=== PATIENT | female | born 1960 | race Two or more races ===

== ENCOUNTER 2018-07-04 08:26 | Emergency (ER) | payer SELFPAY ==
--- OUTSIDE RECORDS SUMMARY | 2018-07-04 08:28 | XMS REPORT | Continuity of Care Document ---
:1960 Author Organization Interface Problems Problem Status Onset Classification Date Comments Source Date Reported Encounter for 12/12/2017 OPID The screening 8 [place] mammogram for malignant neoplasm of breast Discharge 02/05/2017 The Diagnosis: 7 [place] Acute abdominal pain Discharge 02/05/2017 The Diagnosis: 7 [place] Acute headache ABDOMINAL Active The PAIN 7 [place] Medications Medication Details Route Status Patient Ordering Order Source Instructions Provider Date Promethazine DM 5 mL, PO, Q6H, Active Medical oral syrup PRN for cough, 2017 Group X 6 day, # 120 mL, 0 Refill(s), Pharmacy: [facility] {6 See Active Medical (Azithromycin Instructions, 2017 Group 250 MG Oral Take 2 tablets Tablet by mouth the [Zithromax]) } first day then Pack [Z-PAKS] 1 tablet by mouth days 2-5., X 5 day, # 6 tab, 0 Refill(s), Pharmacy: [facility] tramadol 50 mg=1 tab, Active The hydrochloride PO, BID, X 5 2016 [place] 50 MG Oral day, # 10 tab, Tablet 0 Refill(s) Dicyclomine 10 mg=1 cap, Active The Hydrochloride PO, QID-Before 2016 [place] 10 MG Oral Meals, # 28 Capsule cap, 0 [Bentyl] Refill(s) Benadryl 25 mg, 0.5 mL, Inactive The Route: IVP, 2016 [place] Drug form: INJ, ONCE, Dosing Weight 57.727, kg, Priority: STAT, Start date: 02/02/17 17:05:00 CDT, Stop date: 02/02/17 17:05:00 CDTNotes: (Same as: Benadryl) Morphine 4 mg, 1 mL, Inactive The Route: IVP, 2016 [place] Drug form: INJ, ONCE, Dosing Weight 57.727, kg, Priority: STAT, Start date: 02/02/17 16:57:00 CDT, Stop date: 02/02/17 16:57:00 CDTNotes: (Same as:MORPhine Sulfate) Zofran 4 mg, 2 mL, Inactive The Route: IVP, 2016 [place] Drug form: INJ, ONCE, Dosing Weight 57.727, kg, Priority: STAT, Start date: 02/02/17 16:57:00 CDT, Stop date: 02/02/17 16:57:00 CDTNotes: (Same as: Zofran) MEDICATION WASTE Product Size: 4 mg Product Wasted: ___ mg Sodium Chloride 1,000 mL, Inactive The 0.154 MEQ/ML 1,000 ml/hr, 2016 [place] Injectable Infuse Over: 1 Solution hr, Route: IV, 1,000, Drug form: INJ, ONCE, Priority: STAT, Dosing Weight 57.727 kg, Start date: 02/02/17 16:56:00 CDT, Duration: 1 doses or times, Stop date: 02/02/17 16:56:00 CDT Saline Flush 10 mL, Route: Inactive The 0.9% IVP, Drug 2016 [place] Form: INJ, Dosing Weight 57.727, kg, PRN, PRN Line Flush, Start date: 02/02/17 14:58:00 CDT, Duration: 30 day, Stop date: 03/04/17 14:57:00 CDTNotes: preservative free. Allergies, Adverse Reactions, Alerts Substance Category Reaction Severity Reaction Status Date Comments Source type Reported Immunizations Immunization Date Given Site Status Last Updated Comments Source Results Order Name Results Value Reference Date Interpretation Comments Source Range Breast Breast Mammo 09/05 - OPID Mammo Scrn Scrn JOSÉ MIGUEL w /2017 - The JOSÉ MIGUEL w dev dev incl [place] incl CAD CAD JENNY ALVARADO Read by: Radha Barbosa MD Dictated Date/time: 09/13/17 08:02 BILATERAL DIGITAL SCREENING MAMMOGRAM 3D/2D WITH CAD: 09/05/2017 Electronically Signed by: Radha Barbosa MD 09/13/17 08 :02 FINAL REPORT CLINICAL: /Screening Gabriel Cota AlfredoSophie (: 64). Current study was evaluated with a Computer Aided Detection (CAD) system. COMPARISON:Comparison is made to exam dated: 2016 mammogram - Nelda Rider. TECHNIQUE: Digital Breast Tomosynthesis was performed and utilized for Interpretation. Current study was also evaluated with a Computer Aided Detection (CAD) system. FINDINGS: There are scattered fibroglandular densities in both breasts. No significant masses, calcifications, or other findings are seen in either breast. There has been no significant interval change. IMPRESSION: NEGATIVE RECOMMENDATION:There is no mammographic evidence of malignancy. A 1 year screening mammogram is recommended.(09/06/2018) This exam was interpreted at [id number] at [facility]. Professional services are provided by the [facility] M[facility] Division of Diagnostic Imaging. Radha Barbosa M.D. to/penrad:09/13/2017 08:02:07 Licensed Master Social Worker(s): RT Justen(R)(M), [facility] - OP Imaging letter sent: BI-RADS 1/2 Mammogram BI-RADS: 1 Negative URINE AND UA <=1.0 0.1 - 1.0 02/02 The STOOL Urobilinogen mg/dL /2016 [place] URINE AND UA Turbidity Clear Clear 02/02 The STOOL [place] (02/02/17 3:45 PM) URINE AND UA Spec Grav 1.018 <=1.030 02/02 The STOOL [place] URINE AND UA Color Yellow Yellow 02/02 The [place] *NA* (02/02/17 3:45 PM) URINE AND UA RBC 7 /HPF 0 - 2 02/02 The STOOL [place] URINE AND UA Mucus Moderate None Seen 02/02 The STOOL /LPF /LPF /2016 [place] URINE AND UA Bili Negative Negative 02/02 The [facility] [place] *NA* (02/02/17 3:45 PM) URINE AND UA Nitrite Negative Negative 02/02 The STOOL /2016 [place] (02/02/17 3:45 PM) URINE AND UA Blood Negative Negative 02/02 The STOOL /2016 [place] (02/02/17 3:45 PM) URINE AND UA Leuk Est Negative Negative 02/02 The STOOL [place] (02/02/17 3:45 PM) URINE AND UA Sq Epi Few /LPF Few /LPF 02/02 The [place] URINE AND UA WBC 2 /HPF 0 - 5 02/02 The STOOL [place] URINE AND UA Protein 10 mg/dL Negative 02/02 The STOOL mg/dL [place] URINE AND UA pH 6.0 5.0 - 8.0 02/02 The [place] URINE AND UA Ketones 40 mg/dL Negative 02/02 The STOOL mg/dL [place] URINE AND UA Glucose Negative Negative 02/02 The STOOL mg/dL mg/dL [place] CARDIAC Troponin-I null 0.00 - 02/02 The ENZYMES 0.40 [place] CARDIAC Troponin-I null 0.00 - 02/02 The ENZYMES 0.40 [place] CHEM PANEL Lipase Lvl 214 unit/L 73 - 393 02/02 [place] CHEM PANEL eGFR 105 02/02 Result Comment: The eGFR is calculated using the CKD-EPI formula. In most young, healthy individuals the eGFR will be >90 mL/ min/1.73m2. The eGFR declines with age. An eGFR of 60-89 may be normal in The mL/min/1.7 /2017 some populations, particularly the elderly, for whom the CKD-EPI formula has not been extensively validated. Use of the eGFR is not recommended in the following populations: [place] 3m2 Individuals with unstable creatinine concentrations, including patients and those with serious co-morbid conditions. Patients with extremes in muscle mass or diet. The data above are obtained from the National Kidney Disease Education Program (NKDEP) which additionally recommends that when the eGFR is used in patients with extremes of body mass index for purposes of drug dosing, the eGFR should be multiplied by the estimated BMI. CHEM PANEL Glucose Lvl 99 mg/dL 70 - 99 02/02 [place] CHEM PANEL ALT 25 unit/L 0 - 65 02/02 [place] CHEM PANEL Sodium Lvl 136 meq/L 135 - 145 02/02 [place] CHEM PANEL Chloride Lvl 103 meq/L 95 - 109 02/02 The [place] CHEM PANEL Potassium 3.4 meq/L 3.5 - 5.1 02/02 MH The Lvl [place] CHEM PANEL Creatinine 0.57 mg/dL 0.50 - 07 MH The Lvl 1.40 [place] CHEM PANEL BUN 13 mg/dL 7 - 22 02/02 The [place] CHEM PANEL Albumin Lvl 4.1 g/dL 3.5 - 5.0 02/02 The [place] CHEM PANEL Total 7.7 g/dL 6.4 - 8.4 02/02 The Protein [place] CHEM PANEL Calcium Lvl 8.9 mg/dL 8.5 - 10.5 02/02 The [place] CHEM PANEL CO2 25 meq/L 24 - 32 02/02 MH The [place] CHEM PANEL AST 21 unit/L 0 - 37 02/02 The [place] CHEM PANEL Alk Phos 82 unit/L 39 - 136 02/02 The [place] CHEM PANEL Bili Total 0.8 mg/dL 0.2 - 1.3 02/02 The [place] CHEM PANEL Globulin 3.6 g/dL 2.7 - 4.2 02/02 The [place] CHEM PANEL A/G Ratio 1.1 0.7 - 1.6 02/02 The [place] CHEM PANEL B/C Ratio 23 6 - 25 02/02 The [place] CHEM PANEL AGAP 11.4 meq/L 10.0 - 02/02 The 20. [place] HEMATOLOGY Segs-Bands # 6.7 K/CMM 1.5 - 8.1 02/02 The [place] HEMATOLOGY Basophils 0.4 % 0.0 - 1.0 02/02 MH The [place] HEMATOLOGY Eosinophils 0.1 K/CMM 0.0 - 0.5 02/02 MH The # [place] HEMATOLOGY Lymphocytes 1.8 K/CMM 1.0 - 5.5 02/02 MH The # [place] HEMATOLOGY Monocytes # 0.4 K/CMM 0.0 - 0.8 02/02 The [place] HEMATOLOGY Lymphocytes 20.2 % 20.0 - 02/02 MH The 40.0 [place] HEMATOLOGY Eosinophils 1.2 % 0.0 - 4.0 02/02 The [place] HEMATOLOGY Monocytes 4.9 % 2.0 - 12.0 02/02 The [place] HEMATOLOGY Segs 73.3 % 45.0 - 02/02 The 75.0 [place] HEMATOLOGY INR 1.08 0.85 - 02/02 The 1.17 [place] HEMATOLOGY PT 14.2 s 12.0 - 02/02 The 14.7 [place] HEMATOLOGY PTT 35.8 s 22.9 - 02/02 The 35.8 [place] HEMATOLOGY MCV 86.1 fL 80.0 - 02/02 The 98.0 [place] HEMATOLOGY Hct 41.6 % 36.0 - 02/02 The 48.0 [place] HEMATOLOGY MCHC 33.9 g/dL 32.0 - 02/02 The 36.0 [place] HEMATOLOGY RDW 13.5 % 11.5 - 02/02 The 14. [place] HEMATOLOGY Platelet 222 K/CMM 133 - 450 02/02 The [place] HEMATOLOGY MCH 29.2 pg 27.0 - 02/02 The 31.0 [place] HEMATOLOGY MPV 8.2 fL 7.4 - 10.4 02/02 The [place] HEMATOLOGY RBC 4.83 M/CMM 4.20 - 02/02 The 5.40 [place] HEMATOLOGY WBC 9.1 K/CMM 3.7 - 10.4 02/02 [place] HEMATOLOGY Hgb 14.1 g/dL 12.0 - 02/02 The 16.0 [place] Vital Signs Vital Sign Value Date Comments Source Height 165.1 cm 06/22/2017 [facility] Heart Rate 98 06/22/2017 [facility] Temperature Oral (F) 99.9 F 06/22/2017 [facility] Systolic (mm Hg) 118 06/22/2017 [facility] Diastolic (mm Hg) 73 06/22/2017 [facility] BMI Calculated 20.68 06/22/2017 [facility] Weight 56.364 06/22/2017 [facility] Respitory Rate 19 02/03/2017 [facility] Systolic (mm Hg) 126 02/03/2017 [facility] Diastolic (mm Hg) 70 02/03/2017 [place] Systolic (mm Hg) 130 02/03/2017 [place] Diastolic (mm Hg) 75 02/03/2017 [place] Respitory Rate 13 02/03/2017 [place] Systolic (mm Hg) 155 02/02/2017 [place] Diastolic (mm Hg) 89 02/02/2017 [place] Heart Rate 73 02/02/2017 [place] Respitory Rate 19 02/02/2017 [place] Heart Rate 63 02/02/2017 [place] Heart Rate 70 02/02/2017 [place] Encounters Location Location Encounter Encounter Reason Attending ADM DC Status Source Details Type Number For Provider Date Date Visit Outpatient [id number] [facility] 02/02 [facility] Emergency [id number] Terry 02/02 02/03 [facility] /2016 [facility] Outpatient [id number] [facility] 06/22 [facility] Outpatient [id number] [facility] 06/22 06/23 [facility]2016 [facility] Outpatient [id number] Saqib 09/05 09/06 [facility] Outpatient Serjio /2017 [facility] Procedures Procedure Code Date Perfomer Comments Source
--- OUTSIDE RECORDS SUMMARY | 2018-07-04 08:29 | XMS REPORT | Summary of Care ---
:1960 Author Organization [facility] Outpatient Imaging [place] Address [address] [place] [address]- Encounter HQ Encntr_alias(FIN) [id number] Date(s): 09/05/17 - 09/05/17 [facility] Outpatient Imaging [place] [id number] - Encounter Diagnosis Encounter for screening mammogram for malignant neoplasm of breast (Final) - Discharge Disposition: Home or Self Care Attending Physician: Saqib Bassett MD Vital Signs No data available for this section Problem List No data available for this section Allergies, Adverse Reactions, Alerts Substance Reaction Severity Status NKDA Active Medications No data available for this section Results No data available for this section Immunizations No data available for this section Procedures No data available for this section Social History Social History Type Response Smoking Status Never smoker; Exposure to Tobacco Smoke None; Cigarette Smoking Last 365 Days No; Reg Smoking Cessation Counseling Yes entered on: 06/22/17 Assessment and Plan No data available for this section
--- OUTSIDE RECORDS SUMMARY | 2018-07-04 08:29 | XMS REPORT | Summary of Care ---
:1960 Author Organization [facility] Address [address], [place] [address]- Encounter HQ Encntr_alidarlin(FIN) [id number] Date(s): 02/02/17 - 02/02/[address] [address]- Discharge Diagnosis: Acute abdominal pain Discharge Diagnosis: Acute headache Discharge Disposition: Home or Self Care Attending Physician: Terry Harris MD Vital Signs Most recent to oldest 1 2 3 [Reference Range]: Blood Pressure [90-140/60-90 126/70 mmHg 130/75 mmHg 155/89 mmHg mmHg] (02/02/17 7:56 PM) (02/02/17 7:00 PM) *HI* (02/02/17 6:15 PM) Respiratory Rate [14-20 BRMIN] 19 BRMIN 13 BRMIN 19 BRMIN (02/02/17 7:56 PM) *LOW* (02/02/17 6:15 PM) (02/02/17 7:00 PM) Peripheral Pulse Rate [60-100 73 bpm 63 bpm 70 bpm bpm] (02/02/17 6:15 PM) (02/02/17 2:59 PM) (02/02/17 2:45 PM) Problem List No data available for this section Allergies, Adverse Reactions, Alerts Substance Reaction Severity Status NKDA Active Medications Benadryl 25 mg, 0.5 mL, Route: IVP, Drug form: INJ, ONCE, Dosing Weight 57.727, kg, Priority: STAT, Start date: 02/02/17 17:05:00 CDT, Stop date: 02/02/17 17:05:00 CDT Notes: (Same as: Benadryl) Start Date: 02/02/17 Stop Date: 02/02/17 Status: CompletedBentyl 10 mg oral capsule 10 mg=1 cap, PO, QID-Before Meals, # 28 cap, 0 Refill(s) Start Date: 02/02/17 Stop Date: 02/09/17 Status: Orderedmorphine Sulfate 4 mg, 1 mL, Route: IVP, Drug form: INJ, ONCE, Dosing Weight 57.727, kg, Priority : STAT, Start date: 02/02/17 16:57:00 CDT, Stop date: 02/02/17 16:57:00 CDT Notes: (Same as:MORPhine Sulfate) Start Date: 02/02/17 Stop Date: 02/02/17 Status: CompletedNS (Bolus) IV 1,000 mL, 1,000 ml/hr, Infuse Over: 1 hr, Route: IV, 1,000, Drug form: INJ, ONCE , Priority: STAT, Dosing Weight 57.727 kg, Start date: 02/02/17 16:56:00 CDT, Duration: 1 doses or times, Stop date: 02/02/17 16:56:00 CDT Start Date: 02/02/17 Stop Date: 02/02/17 Status: CompletedSaline Flush 0.9% 10 mL, Route: IVP, Drug Form: INJ, Dosing Weight 57.727, kg, PRN, PRN Line Flush , Start date: 02/02/17 14:58:00 CDT, Duration: 30 day, Stop date: 03/04/17 14:57 :00 CDT Notes: preservative free. Start Date: 02/02/17 Stop Date: 02/02/17 Status: Discontinuedtramadol 50 mg oral tablet 50 mg=1 tab, PO, BID, X 5 day, # 10 tab, 0 Refill(s) Start Date: 02/02/17 Stop Date: 02/07/17 Status: OrderedZofran 4 mg, 2 mL, Route: IVP, Drug form: INJ, ONCE, Dosing Weight 57.727, kg, Priority : STAT, Start date: 02/02/17 16:57:00 CDT, Stop date: 02/02/17 16:57:00 CDT Notes: (Same as: Zofran) MEDICATION WASTE Product Size: 4 mgProduct Wasted: ___ mg Start Date: 02/02/17 Stop Date: 02/02/17 Status: Completed Results ELECTROLYTES Most recent to oldest [Reference Range]: 1 2 Sodium Lvl [135-145 mEq/L] 136 mEq/L (02/02/17 3:06 PM) Potassium Lvl [3.5-5.1 mEq/L] 3.4 mEq/L *LOW* (02/02/17 3:06 PM) Chloride Lvl [95-109 mEq/L] 103 mEq/L (02/02/17 3:06 PM) CO2 [24-32 mEq/L] 25 mEq/L (02/02/17 3:06 PM) AGAP [10.0-20.0 mEq/L] 11.4 mEq/L (02/02/17 3:06 PM) CHEM PANEL Most recent to oldest [Reference Range]: 1 2 Creatinine Lvl [0.50-1.40 mg/dL] 0.57 mg/dL (02/02/17 3:06 PM) eGFR 105 mL/min/1.73m2 1 *NA* (02/02/17 3:06 PM) BUN [7-22 mg/dL] 13 mg/dL (02/02/17 3:06 PM) B/C Ratio [6-25] 23 (02/02/17 3:06 PM) Glucose Lvl [70-99 mg/dL] 99 mg/dL (02/02/17 3:06 PM) Total Protein [6.4-8.4 g/dL] 7.7 g/dL (02/02/17 3:06 PM) Albumin Lvl [3.5-5.0 g/dL] 4.1 g/dL (02/02/17 3:06 PM) Globulin [2.7-4.2 g/dL] 3.6 g/dL (02/02/17 3:06 PM) A/G Ratio [0.7-1.6] 1.1 (02/02/17 3:06 PM) Calcium Lvl [8.5-10.5 mg/dL] 8.9 mg/dL (02/02/17 3:06 PM) ALT [0-65 unit/L] 25 unit/L (02/02/17 3:06 PM) AST [0-37 unit/L] 21 unit/L (02/02/17 3:06 PM) Alk Phos [39-136 unit/L] 82 unit/L (02/02/17 3:06 PM) Bili Total [0.2-1.3 mg/dL] 0.8 mg/dL (02/02/17 3:06 PM) Lipase Lvl [73-393 unit/L] 214 unit/L (02/02/17 3:06 PM) 1Result Comment: The eGFR is calculated using the CKD-EPI formula. In most young , healthy individualsthe eGFR will be >90 mL/min/1.73m2. The eGFR declines with age. An eGFR of 60-89 may be normal in some populations, particularly the elderly, for whom the CKD-EPI formula has not been extensively validated. Use of the eGFR is not recommended in the following populations: Individuals with unstable creatinine concentrations, including patients and those with serious co-morbid conditions. Patients with extremes in muscle mass or diet. The data above are obtained from the National Kidney Disease Education Program ( NKDEP) which additionally recommends that when the eGFR is used in patients with extremes of body mass index for purposesof drug dosing, the eGFR should be multiplied by the estimated BMI.CARDIAC ENZYMES Most recent to oldest [Reference Range]: 1 2 Troponin-I [0.00-0.40 ng/mL] <0.02 ng/mL <0.02 ng/mL (02/02/17 3:06 PM) (02/02/17 3:06 PM) URINE AND STOOL Most recent to oldest [Reference Range]: 1 2 UA Turbidity [Clear] Clear (02/02/17 3:45 PM) UA Color [Yellow] Yellow *NA* (02/02/17 3:45 PM) UA pH [5.0-8.0] 6.0 (02/02/17 3:45 PM) UA Spec Grav [<=1.030] 1.018 (02/02/17 3:45 PM) UA Glucose [Negative mg/dL] Negative mg/dL *NA* (02/02/17 3:45 PM) UA Blood [Negative] Negative (02/02/17 3:45 PM) UA Ketones [Negative mg/dL] 40 mg/dL *ABN* (02/02/17 3:45 PM) UA Protein [Negative mg/dL] 10 mg/dL *ABN* (02/02/17 3:45 PM) UA Urobilinogen [0.1-1.0 mg/dL] <=1.0 mg/dL *NA* (02/02/17 3:45 PM) UA Bili [Negative] Negative *NA* (02/02/17 3:45 PM) UA Leuk Est [Negative] Negative (02/02/17 3:45 PM) UA Nitrite [Negative] Negative (02/02/17 3:45 PM) UA WBC [0-5 /HPF] 2 /HPF (02/02/17 3:45 PM) UA RBC [0-2 /HPF] 7 /HPF *HI* (02/02/17 3:45 PM) UA Sq Epi [Few /LPF] Few /LPF *NA* (02/02/17 3:45 PM) UA Mucus [None Seen /LPF] Moderate /LPF *ABN* (02/02/17 3:45 PM) HEMATOLOGY Most recent to oldest [Reference Range]: 1 2 WBC [3.7-10.4 K/CMM] 9.1 K/CMM (02/02/17 3:06 PM) RBC [4.20-5.40 M/CMM] 4.83 M/CMM (02/02/17 3:06 PM) Hgb [12.0-16.0 g/dL] 14.1 g/dL (02/02/17 3:06 PM) Hct [36.0-48.0 %] 41.6 % (02/02/17 3:06 PM) MCV [80.0-98.0 fL] 86.1 fL (02/02/17 3:06 PM) MCH [27.0-31.0 pg] 29.2 pg (02/02/17 3:06 PM) MCHC [32.0-36.0 g/dL] 33.9 g/dL (02/02/17 3:06 PM) RDW [11.5-14.5 %] 13.5 % (02/02/17 3:06 PM) Platelet [133-450 K/CMM] 222 K/CMM (02/02/17 3:06 PM) MPV [7.4-10.4 fL] 8.2 fL (02/02/17 3:06 PM) Segs [45.0-75.0 %] 73.3 % (02/02/17 3:06 PM) Lymphocytes [20.0-40.0 %] 20.2 % (02/02/17 3:06 PM) Monocytes [2.0-12.0 %] 4.9 % (02/02/17 3:06 PM) Eosinophils [0.0-4.0 %] 1.2 % (02/02/17 3:06 PM) Basophils [0.0-1.0 %] 0.4 % (02/02/17 3:06 PM) Segs-Bands # [1.5-8.1 K/CMM] 6.7 K/CMM (02/02/17 3:06 PM) Lymphocytes # [1.0-5.5 K/CMM] 1.8 K/CMM (02/02/17 3:06 PM) Monocytes # [0.0-0.8 K/CMM] 0.4 K/CMM (02/02/17 3:06 PM) Eosinophils # [0.0-0.5 K/CMM] 0.1 K/CMM (02/02/17 3:06 PM) PT [12.0-14.7 seconds] 14.2 seconds (02/02/17 3:06 PM) INR [0.85-1.17] 1.08 (02/02/17 3:06 PM) PTT [22.9-35.8 seconds] 35.8 seconds (02/02/17 3:06 PM) Immunizations No data available for this section Procedures No data available for this section Social History Social History Type Response Smoking Status Never smoker; Exposure to Tobacco Smoke None; Cigarette Smoking Last 365 Days No; Reg Smoking Cessation Counseling Yes Assessment and Plan No data available for this section
--- OUTSIDE RECORDS SUMMARY | 2018-07-04 08:29 | XMS REPORT | Summary of Care ---
:1960 Author Organization [facility] [place] [facility] Address [address] [place] [address]- Encounter HQ Jose Jr_rigoberto(FIN) [id number] Date(s): 06/22/17 - 06/22/17 [facility] [place] [facility] [address] [place] [phone] Discharge Disposition: Home or Self Care Attending Physician: Dominic Gil NP Vital Signs Most recent to oldest [Reference Range]: 1 Height 165.1 cm (06/22/17 10:12 AM) Temperature Oral [96.4-99.1 DegF] 99.9 DegF *HI* (06/22/17 10:12 AM) Blood Pressure [90-140/60-90 mmHg] 118/73 mmHg (06/22/17 10:12 AM) Peripheral Pulse Rate [60-100 bpm] 98 bpm (06/22/17 10:12 AM) Weight 56.364 kg (06/22/17 10:12 AM) Body Mass Index 20.68 m2 (06/22/17 10:12 AM) Problem List No data available for this section Allergies, Adverse Reactions, Alerts Substance Reaction Severity Status NKDA Active Medications Promethazine DM oral syrup 5 mL, PO, Q6H, PRN for cough, X 6 day, # 120 mL, 0 Refill(s), Pharmacy: [facility] [id number] Start Date: 06/22/17 Stop Date: 06/28/17 Status: OrderedZithromax Z-Shaqu[place] 250 mg oral tablet See Instructions, Take 2 tablets by mouth the first day then 1 tablet by mouth days 2-5., X 5 day, #6 tab, 0 Refill(s), Pharmacy: [facility] [id number] Start Date: 06/22/17 Stop Date: 06/27/17 Status: Ordered Results No data available for this section Immunizations No data available for this section Procedures No data available for this section Social History Social History Type Response Smoking Status Never smoker; Exposure to Tobacco Smoke None; Cigarette Smoking Last 365 Days No; Reg Smoking Cessation Counseling Yes Assessment and Plan No data available for this section
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
== END 2018-07-04 10:44 | disposition home or self-care (01) ==
LOC: ER 08:26
DX: S16.1XXA Strain of muscle, fascia and tendon at neck level, initial encounter (principal); S60.212A Contusion of left wrist, initial encounter; V49.40XA Driver injured in collision with unspecified motor vehicles in traffic accident, initial encounter
CPT/HCPCS: 70450; 72040; 99284

== ENCOUNTER 2019-12-10 17:35 | Emergency (ER) | payer SELFPAY ==
--- OUTSIDE RECORDS SUMMARY | 2019-12-10 17:37 | XMS REPORT | Continuity of Care Document ---
:1960 Author Organization [email or web address] Care Team Providers Name Role Phone [email or web address] Unavailable Un available Problems Problem Status Onset Classification Date Comments Sourc e Date Reported Encounter for 12/12/2017 OP ID The screening 8 [facility] mammogram for malignant neoplasm of breast Unspecified 02/05/2017 The abdominal pain 7 [facility] Headache 02/05/2017 The 7 [facility] ABDOMINAL PAIN Active [facility] e 7 [facility] Medications Medication Details Route Status Patient Ordering Order Source Instructions Provider Date Promethazine DM 5 mL, PO, Q6H, Active 06/22/ M [facility] oral syrup PRN for cough, 2017 Group X 6 day, # 120 mL, 0 Refill(s), Pharmacy: [facility] [id number] {6 See Active Medical (Azithromycin Instructions, 2017 Grou p 250 MG Oral Take 2 tablets Tablet by mouth the [Zithromax]) } first day then Pack [Z-PAKS] 1 tablet by mouth days 2-5., X 5 day, # 6 tab, 0 Refill(s), Pharmacy: [facility] [id number] tramadol 50 mg = 1 tab, Active The hydrochloride PO, BID, X 5 2017 [place] and[facility] 50 MG Oral day, # 10 tab, Tablet 0 Refill(s) Dicyclomine 10 mg = 1 cap, Active Th e Hydrochloride PO, QID-Before 2017 [place] 10 MG Oral Meals, # 28 Capsule cap, 0 [Bentyl] Refill(s) Benadryl Notes: (Same Inactive The as: Benadryl) 2016 [facility] Morphine Notes: (Same Inactive The as:MORPhine 2016 [facility] Sulfate) Zofran Notes: (Same Inactive The as: Zofran) 2016 [facility] MEDICATION WASTE Product Size: 4 mg Product Wasted: ___ mg Sodium Chloride 1,000 mL, Inactive Th e 0.154 MEQ/ML 1,000 ml/hr, 2016 [facility] Injectable Infuse Over: 1 Solution hr, Route: IV, 1,000, Drug form: INJ, ONCE, Priority: STAT, Dosing Weight 57.727 kg, Start date: 02/02/17 16:56:00 CDT, Duration: 1 doses or times, Stop date: 02/02/17 16:56:00 CDT Saline Flush Notes: Inactive The 0.9% preservative 2016 [facility] free. Allergies, Adverse Reactions, Alerts No Known Medication Allergies Immunizations No Data Provided for This Section Results Order Name Results Value Reference Date Interpretation Comments Doris rce Range URINE AND UA <=1.0 0.1 - 1.0 02/02 The STOOL Urobilinogen mg/dL /2016 [facility] URINE AND UA Turbidity Clear Clear 02/02 The STOOL (02/02/17 3:45 PM) /2016 [facility] nds URINE AND UA Spec Grav 1.018 <=1.030 02/02 The STOOL /2016 [place] URINE AND UA Color Yellow Yellow 02/02 The STOOL *NA* /2016 [place] (02/02/17 3:45 PM) URINE AND UA RBC 7 0 - 2 02/02 The STOOL /2016 [place] URINE AND UA Mucus Moderate None Seen 02/02 The STOOL /LPF /LPF /2016 [place] URINE AND UA Bili Negative Negative 02/02 The STOOL *NA* /2016 [place] (02/02/17 3:45 PM) URINE AND UA Nitrite Negative Negative 02/02 The STOOL (02/02/17 3:45 PM) /2016 [facility] nds URINE AND UA Blood Negative Negative 02/02 The STOOL (02/02/17 3:45 PM) /2016 [facility] URINE AND UA Leuk Est Negative Negative 02/02 The STOOL (02/02/17 3:45 PM) /2016 [facility] nds URINE AND UA Sq Epi Few /LPF Few /LPF 02/02 The STOOL /2016 [facility] URINE AND UA WBC 2 0 - 5 02/02 [facility] The STOOL /2016 [place] URINE AND UA Protein 10 mg/dL Negative 02/02 The STOOL mg/dL /2016 [place] URINE AND UA pH 6.0 5.0 - 8.0 02/02 The STOOL /2016 [facility] URINE AND UA Ketones 40 mg/dL Negative 02/02 The STOOL mg/dL /2016 [facility] URINE AND UA Glucose Negative Negative 02/02 [facility] The STOOL mg/dL mg/dL /2016 [facility] CARDIAC Troponin-I <0.02 0.00 - 02/02 The ENZYMES 0.40 [facility] CARDIAC Troponin-I <0.02 0.00 - 02/02 The ENZYMES 0.40 [facility] CHEM PANEL Lipase Lvl 214 73 - 393 02/02 The [facility] CHEM PANEL eGFR 105 02/02 [facility] Comment: [place] eGFR is calculated using the CKD-EPI formula. In most young, healthy individuals the eGFR will be >90 mL/min/1.73m2 . The eGFR declines with age. An eGFR of 60-89 may be normal in some populations, particularly the elderly, for whom the CKD-EPI formula has not been extensively validated. Use of the eGFR is not recommended in the following populations:< br/>
Lucinda viduals with unstable creatinine concentration s, including patients and those with serious co-morbid conditions.<b r/>
Patie nts with extremes in muscle mass or diet.

The data above are obtained from the National Kidney Disease Education Program (NKDEP) which additionally recommends that when the eGFR is used in patients with extremes of body mass index for purposes of drug dosing, the eGFR should be multiplied by the estimated BMI. CHEM PANEL Glucose Lvl 99 70 - 99 02/02 The [facility] CHEM PANEL ALT 25 0 - 65 02/02 The [facility] CHEM PANEL Sodium Lvl 136 135 - 145 02/02 The [facility] CHEM PANEL Chloride Lvl 103 95 - 109 02/02 The [facility] CHEM PANEL Potassium 3.4 3.5 - 5.1 02/02 The Lvl [facility] CHEM PANEL Creatinine 0.57 0.50 - 02/02 The Lvl 1.40 [facility] CHEM PANEL BUN 13 7 - 22 02/02 The [facility] CHEM PANEL Albumin Lvl 4.1 3.5 - 5.0 07 The [facility] CHEM PANEL Total 7.7 6.4 - 8.4 07 The Protein [facility] CHEM PANEL Calcium Lvl 8.9 8.5 - 10.5 02/02 The [facility] CHEM PANEL CO2 25 24 - 32 07 The [facility] CHEM PANEL AST 21 0 - 37 07 The [facility] CHEM PANEL Alk Phos 82 39 - 136 07 The [facility] CHEM PANEL Bili Total 0.8 0.2 - 1.3 07 The [place] CHEM PANEL Globulin 3.6 2.7 - 4.2 07 The [facility] CHEM PANEL A/G Ratio 1.1 0.7 - 1.6 02/02 The [facility] CHEM PANEL B/C Ratio 23 6 - 25 07 The [facility] CHEM PANEL AGAP 11.4 10.0 - 02/02 The 20.0 [facility] HEMATOLOGY Segs-Bands # 6.7 1.5 - 8.1 02/02 The [facility] HEMATOLOGY Basophils 0.4 0.0 - 1.0 07 The [facility] HEMATOLOGY Eosinophils 0.1 0.0 - 0.5 07 The # [facility] HEMATOLOGY Lymphocytes 1.8 1.0 - 5.5 02/02 The # [facility] HEMATOLOGY Monocytes # 0.4 0.0 - 0.8 02/02 The [facility] HEMATOLOGY Lymphocytes 20.2 20.0 - 02/02 The 40.0 [facility] HEMATOLOGY Eosinophils 1.2 0.0 - 4.0 07 The [facility] HEMATOLOGY Monocytes 4.9 2.0 - 12.0 02/02 The [place] HEMATOLOGY Segs 73.3 45.0 - 02/02 The 75.0 [facility] HEMATOLOGY INR 1.08 0.85 - 02/02 The 1.17 [facility] HEMATOLOGY PT 14.2 12.0 - 02/02 The 14.7 [facility] HEMATOLOGY PTT 35.8 22.9 - 02/02 The 35.8 [facility] HEMATOLOGY MCV 86.1 80.0 - 02/02 The 98.0 [facility] HEMATOLOGY Hct 41.6 36.0 - 02/02 The 48.0 [facility] HEMATOLOGY MCHC 33.9 32.0 - 02/02 The 36.0 [facility] HEMATOLOGY RDW 13.5 11.5 - 02/02 The 14.5 [facility] HEMATOLOGY Platelet 222 133 - 450 02/02 The [facility] HEMATOLOGY MCH 29.2 27.0 - 02/02 The 31.0 [facility] HEMATOLOGY MPV 8.2 7.4 - 10.4 02/02 The [facility] HEMATOLOGY RBC 4.83 4.20 - 02/02 The 5.40 [facility] HEMATOLOGY WBC 9.1 3.7 - 10.4 02/02 [facility] HEMATOLOGY Hgb 14.1 12.0 - 02/02 The 16.0 [facility] Pathology Reports No Data Provided for This Section Diagnostic Reports Report Value Date Source Breast Mammo Scrn 09/05/2017 [place] [place] JOS[place] MIGUEL w dev incl CAD MA BILATERAL DIGITAL SCREENING MAMMOGRAM 3D/2D WITH CAD: 09/05/2017 CLINICAL: /Screening CoogleGabriel S. (: 64). Current study was evaluated with a Arrt Technologist d Detection (CAD) system. COMPARISON:Comparison is mad e to exam dated: 2016 mammogram - Nelda Rider. TECHNIQUE: Digital Breast To mosynthesis was performed and utilized for Interpretation. Current study was also evaluated with a Computer Aided Detection (CAD) system. FINDINGS: There are scattered fibroglandular densities in both breasts. No significant masses, calci fications, or other findings are seen in either breast. There has been no significant interval change. IMPRESSION: NEGATIVE RECOMMENDATION:There is no m ammographic evidence of malignancy. A 1 year screening mammogram is recommended.(09/06/2018) This exam was interpreted at [id number] at [facility]. Professional services are pr ovided by the [facility]. Radha benson/penrad:09/13/2017 08:02:07 Artisan Plasterer(s): RT Mila(R)(M), [facility] - OP Imaging letter sent: BI-RADS 1/2 Mammogram BI-RADS: 1 Negative Consultation Notes No Data Provided for This Section Discharge Summaries No Data Provided for This Section History and Physicals No Data Provided for This Section Vital Signs Vital Sign Value Date Comments Source Height 165.1 cm 06/22/2017 [facility] Heart Rate 98 06/22/2017 [facility] Temperature Oral (F) 99.9 F 06/22/2017 [facility] Systolic (mm Hg) 118 06/22/2017 [facility] Diastolic (mm Hg) 73 06/22/2017 [facility] BMI Calculated 20.68 06/22/2017 [facility] Weight 56.364 06/22/2017 [facility] Respitory Rate 19 02/03/2017 [facility] [place] Systolic (mm Hg) 126 02/03/2017 [facility] [place] Diastolic (mm Hg) 70 02/03/2017 [facility] [place] Systolic (mm Hg) 130 02/03/2017 [facility] [place] Diastolic (mm Hg) 75 02/03/2017 [facility] [place] Respitory Rate 13 02/03/2017 [facility] [place] Systolic (mm Hg) 155 02/02/2017 [facility] [place] Diastolic (mm Hg) 89 02/02/2017 [facility] [place] Heart Rate 73 02/02/2017 [facility] [place] [facility] Respitory Rate 19 02/02/2017 [facility] [place] Heart Rate 63 02/02/2017 [facility] [place] [facility] Heart Rate 70 02/02/2017 [facility] [place] [facility] Encounters Location Location Encounter Encounter Reason Attending ADM DC Stat us Source Details Type Number For Provider Date Date Visit Outpatient [id number] [facility] 02[facility]02 [facility] Emergency [id number] [place] 02/02 02/03 [facility] [facility] Outpatient [id number] [facility] 06[facility]22 [facility] Outpatient [id number] [facility] 06[facility]22 06/23 [facility] Outpatient [id number] Saqib 09/05 09/06 [facility] /2017 [facility] Procedures No Data Provided for This Section Assessment and Plan No Data Provided for This Section Plan of Care No Data Provided for This Section Social History Social History Date Source Social History TypeResponse 06/22/2017 [facility] Smoking Status Never smoker; Exposure to Tobacco Smoke None; Cigarette Smoking Last 365 Days No; Reg Smoking Cessation Counseling Yes Social History TypeResponse 06/22/2017 [facility] [place] Smoking Status Never smoker; Exposure to Tobacco Smoke None; Cigarette Smoking Last 365 Days No; Reg Smoking Cessation Counseling Yes entered on: 06/22/17 Social History TypeResponse 02/02/2017 [facility] Smoking Status Never smoker; Exposure to Tobacco Smoke None; Cigarette Smoking Last 365 Days No; Reg Smoking Cessation Counseling Yes Family History No Data Provided for This Section Advance Directives No Data Provided for This Section Functional Status No Data Provided for This Section
--- NOTE | 2019-12-10 18:28 | ER ---
Nurse's Notes [facility] Name: Robert Wade Age: 59 yrs Sex: Female : 1960 Arrival Date: 12/10/2019 Time: 17:35 Bed 12 Private MD: Diagnosis: Toxic effect of venom of bees Presentation: 12/09 18:09 Chief complaint: Patient states: Stung by bee on forehead approx 1 hour ago, states, " ph I usually don't have problem w/ bee stings but I am itching all over." Swelling noted to L side of forehead, reports itching to entire body, denies breathing difficulty, self administered 50 mg Benadryl [employer]. Coronavirus screen: Patient denies a cough. Patient denies shortness of breath or difficulty breathing. Patient denies measured and/or subjective temperature greater than 100.4F prior to today's visit. Patient denies travel on a cruise ship or to a country the [facility] currently lists as an affected area. Patient denies contact with known and/or suspected case of COVID-19. Ebola Screen: No symptoms or risks identified at this time. 18:09 Method Of Arrival: Ambulatory ph 18:13 Onset: The symptoms/episode began/occurred acutely. Anaphylaxis evaluation, no signs or ph symptoms of anaphylaxis were noted. Initial Sepsis Screen: Does the patient meet any 2 criteria? No. Patient's initial sepsis screen is negative. Does the patient have a suspected source of infection? No. Patient's initial sepsis screen is negative. Risk Assessment: Do you want to hurt yourself or someone else? Patient reports no desire to harm self or others. Onset of symptoms was December 10, 2019. 18:13 Acuity: ALICIA 4 ph Triage Assessment: 18:10 General: Appears in no apparent distress. Behavior is calm, cooperative. Pain: Denies hb pain. EENT: No signs and/or symptoms were reported regarding the EENT system. Neuro: Level of Consciousness is awake, alert, obeys commands, Oriented to person, place, time, situation. Cardiovascular: Capillary refill < 3 seconds Patient's skin is warm and dry. Respiratory: Airway is patent Respiratory effort is even, unlabored, Respiratory pattern is regular, symmetrical, Breath sounds are clear bilaterally. GI: No signs and/or symptoms were reported involving the gastrointestinal system. : No signs and/or symptoms were reported regarding the genitourinary system. Derm: Skin is pink, warm \\T\\ dry. Musculoskeletal: No signs and/or symptoms reported regarding the musculoskeletal system. Historical: - Allergies: 18:06 No Known Allergies; ph - PMHx: 18:06 None; ph - PSHx: 18:06 None; ph - Immunization history:: Adult Immunizations up to date. - Social history:: Smoking status: Patient denies any tobacco usage or history of. Screenin:15 Abuse screen: Denies threats or abuse. Denies injuries from another. Nutritional hb screening: No deficits noted. Tuberculosis screening: No symptoms or risk factors identified. Fall Risk None identified. Assessment: 18:24 Reassessment: Patient appears in no apparent distress at this time. Patient and/or hb family updated on plan of care and expected duration. Pain level reassessed. Patient is alert, oriented x 3, equal unlabored respirations, skin warm/dry/pink. Vital Signs: 18:13 BP 147 / 92; Pulse 79; Resp 18; Temp 98.4; Pulse Ox 97% on R/A; ph ED Course: 17:35 Patient arrived in ED. ag5 18:08 Taryn Waters, RN is Primary Nurse. ph 18:15 Patient has correct armband on for positive identification. hb 18:16 Triage completed. ph 18:16 Arm band placed on Patient placed in an exam room. ph 18:17 Judd Villa MD is Attending Physician. kdr 18:32 No provider procedures requiring assistance completed. Patient did not have IV access hb during this emergency room visit. Administered Medications: 18:32 Drug: predniSONE 40 mg Route: PO; hb 18:32 Follow up: Response: Medication administered at discharge. hb 18:32 Drug: Pepcid 20 mg Route: PO; hb 18:32 Follow up: Response: Medication administered at discharge. hb Outcome: 18:26 Discharge ordered by . kdr 18:32 Discharged to home ambulatory. hb 18:32 Condition: stable 18:32 Discharge instructions given to patient, Instructed on discharge instructions, follow up and referral plans. medication usage, Demonstrated understanding of instructions, follow-up care, medications, Prescriptions given X 3. 18:33 Patient left the ED. hb Signatures: Judd Villa MD MD Taryn Mancilla, RN RN ph Radha Lemos RN RN Gustavo, Stefany ag5
--- NOTE | 2019-12-10 18:28 | EDPHYS ---
Physician Documentation [facility] Name: Robert Wade Age: 59 yrs Sex: Female : 1960 Arrival Date: 12/10/2019 Time: 17:35 Bed 12 Private MD: ED Physician Judd Villa HPI: 12/09 18:28 This 59 yrs old Female presents to ER via Ambulatory with complaints of Bee Sting.kdr 18:28 The patient was bitten on the forehead, by a bee, at home. Onset: The symptoms/episode kdr began/occurred suddenly, just prior to arrival. Secondary to the bite the patient reports erythema, pain, swelling. Associated signs and symptoms: Pertinent positives: pain at site, Shakes, chills and itching. Severity of symptoms: At their worst the symptoms were mild, in the emergency department the symptoms have improved, moderately. The patient has not experienced similar symptoms in the past. The patient has not recently seen a physician. Historical: - Allergies: 18:06 No Known Allergies; ph - PMHx: 18:06 None; ph - PSHx: 18:06 None; ph - Immunization history:: Adult Immunizations up to date. - Social history:: Smoking status: Patient denies any tobacco usage or history of. ROS: 18:28 Constitutional: Negative for fever, chills, and weight loss, Eyes: Negative for injury, kdr pain, redness, and discharge, Neck: Negative for injury, pain, and swelling, Cardiovascular: Negative for chest pain, palpitations, and edema, Respiratory: Negative for shortness of breath, cough, wheezing, and pleuritic chest pain, Abdomen/GI: Negative for abdominal pain, nausea, vomiting, diarrhea, and constipation, Back: Negative for injury and pain. 18:28 Skin: Positive for erythema, swelling, of the forehead. Exam: 18:28 Constitutional: This is a well developed, well nourished patient who is awake, alert, kdr and in no acute distress. Eyes: Pupils equal round and reactive to light, extra-ocular motions intact. Lids and lashes normal. Conjunctiva and sclera are non-icteric and not injected. Cornea within normal limits. Periorbital areas with no swelling, redness, or edema. ENT: Nares patent. No nasal discharge, no septal abnormalities noted. Tympanic membranes are normal and external auditory canals are clear. Oropharynx with no redness, swelling, or masses, exudates, or evidence of obstruction, uvula midline. Mucous membranes moist. Neck: Trachea midline, no thyromegaly or masses palpated, and no cervical lymphadenopathy. Supple, full range of motion without nuchal rigidity, or vertebral point tenderness. No Meningismus. 18:28 Head/face: Noted is erythema, that is mild, of the forehead, swelling, that is mild, tenderness, that is mild. Vital Signs: 18:13 BP 147 / 92; Pulse 79; Resp 18; Temp 98.4; Pulse Ox 97% on R/A; ph MDM: 18:26 Patient medically screened. kdr 18:28 Data reviewed: vital signs, nurses notes. Counseling: I had a detailed discussion with kdr the patient and/or guardian regarding: the historical points, exam findings, and any diagnostic results supporting the discharge/admit diagnosis, the need for outpatient follow up. Administered Medications: 18:32 Drug: predniSONE 40 mg Route: PO; hb 18:32 Follow up: Response: Medication administered at discharge. hb 18:32 Drug: Pepcid 20 mg Route: PO; hb 18:32 Follow up: Response: Medication administered at discharge. Disposition: 12/10/19 18:26 Discharged to Home. Impression: Toxic effect of venom of bees. - Condition is Stable. - Discharge Instructions: Bee, Wasp, or Hornet Sting, Adult. - Prescriptions for Benadryl 25 mg Oral Capsule - take 1 capsule by ORAL route every 6 hours As needed; 30 tablet. Prednisone 20 mg Oral Tablet - take 1 tablet by ORAL route once daily for 2 days; 2 tablet. Pepcid 20 mg Oral Tablet - take 1 tablet by ORAL route once daily for 10 days; 10 tablet. - Medication Reconciliation Form, Thank You Letter form. - Follow up: Private Physician; When: 2 - 3 days; Reason: If symptoms return, Further diagnostic work-up, Recheck today's complaints, Continuance of care, Re-evaluation by your physician. - Problem is new. - Symptoms have improved. Signatures: Judd Villa MD MD [facility] Taryn Waters RN RN ph Radha Lemos RN RN Corrections: (The following items were deleted from the chart) 18:33 18:26 12/10/2019 18:26 Discharged to Home. Impression: Toxic effect of venom of bees. hb Condition is Stable. Forms are Medication Reconciliation Form, Thank You Letter, Antibiotic Education, Prescription Opioid Use. Follow up: Private Physician; When: 2 - 3 days; Reason: If symptoms return, Further diagnostic work-up, Recheck today's complaints, Continuance of care, Re-evaluation by your physician. Problem is new. Symptoms have improved. kdr
[2019-12-10] MEDS ORDERED: predniSONE 20 MG TAB ONE (18:33)
[2019-12-10] MEDS ORDERED: FAMOTIDINE 20 MG TAB ONE (18:33)
[2019-12-10 18:38] VITALS: BP 147/92; TEMP 98.4; O2SAT 97
== END 2019-12-10 18:33 | disposition home or self-care (01) ==
LOC: ER 17:35
DX: T63.441A Toxic effect of venom of bees, accidental (unintentional), initial encounter (principal)
CPT/HCPCS: 99283; J7512